=== PATIENT | female | born 1965 | race Caucasian/White ===

== ENCOUNTER 2017-09-04 09:58 | Emergency (ER) | END 2017-09-04 12:50 | disposition home or self-care (01) ==

== ENCOUNTER 2017-12-26 11:17 | Emergency (ER) | END 2017-12-26 14:30 | disposition home or self-care (01) ==

== ENCOUNTER 2018-11-11 11:38 | Emergency (ER) | payer OTHER ==
[~2018-11-11] VITALS: Wt 92.9 kg
[~2018-11-11 11:38] MED LIST: DICL75TA2 PO; GLIP5TAB13 PO; IBUP-1542 PO; MAGN296S40 PO; METF-849 PO; OMEP20CA16 PO
[2018-11-11] MEDS ORDERED: SOD CHLORIDE 0.9% 1,000 ML IV STA (13:22)
[2018-11-11] MEDS ORDERED: morphine 4 MG/ML VIAL IV STA (13:22)
[2018-11-11] MEDS ORDERED: ONDANSETRON 4 MG INJ IV STA (13:22)
[2018-11-11 15:40] VITALS: BP 133/77; PULSE 76; RESP 16
== END 2018-11-11 15:40 | disposition home or self-care (01) ==
LOC: E/R 11:38
DX: K59.00 Constipation, unspecified (principal); E11.9 Type 2 diabetes mellitus without complications; Z79.84 Long term (current) use of oral hypoglycemic drugs
CPT/HCPCS: 36415; 74176; 80053; 81001; 83690; 85025; 87086; 93005; 96374; 96375; J2270; J2405; J7030; Z7502